=== PATIENT | male | born 1995 | race Caucasian/White ===

== ENCOUNTER 2017-06-09 11:10 | Inpatient (IN) ==
[2017-06-09] MEDS ORDERED: ALPRAZolam 0.5 MG TABLET PO ONE (11:42)
--- NOTE | 2017-06-09 11:43 | Emergency Department Note ---
Disposition Clinical Impression: Suicidal ideation, Anxiety, LFT elevation Depression Qualifiers: Depression Type: unspecified Qualified Code(s): F32.9 - Major depressive disorder, single episode, unspecified Disposition: Admitted As Inpatient Condition: Fair Referrals: NO,PCP [Primary Care Provider] - Forms: ED Satisfaction Letter Time of Disposition: 13:54 Psych HPI - General Chief Complaint: ED Psychiatric Symptoms Stated Complaint: SI/depression Time Seen by Provider: 06/09/17 11:36 Source: patient Mode of arrival: ambulatory Limitations: no limitations Nursing Notes Reviewed: Yes Vital Signs Reviewed: Yes - History of Present Illness HPI Narrative: Patient states he has felt depressed "all my life." He now has suicidal thoughts which include "blowing migraines out." He also feels anxious. He used to take antidepressants and hydroxyzine but is not currently taking any medications. He denies acute intoxication. His physical symptoms including chest tightness and face tightness Pt complaint: suicidal ideation, feels depressed, anxiety Onset (ago): week(s) Duration: intermittent History of similar episodes: Yes Improves with: none Worsens with: none Alleged intoxication: No Associated Psychiatric Symptoms: depression, suicidal ideation, anxiety Associated symptoms: Reports: other (Chest pain, "face tightness") Traumatic symptoms: denies traumatic injury Treatments prior to arrival: none Self harm or harm to others: admits thoughts of self harm, has plan - Related Data Allergies Allergy/AdvReac Type Severity Reaction Status Date / Time No Known Allergies Allergy Verified 06/09/17 11:34 All systems ED: reviewed and negative except as stated. Constitutional: Reports: as per HPI Eyes: Reports: as per HPI ENT ED: Reports: as per HPI Cardiovascular: Reports: chest pain Respiratory: Reports: as per HPI Gastrointestinal: Reports: as per HPI Genitourinary: Reports: as per HPI Musculoskeletal: Reports: as per HPI Integumentary: Reports: as per HPI Neurological: Reports: as per HPI Psychiatric: Reports: anxiety, depression, suicidal thoughts Endocrine: Reports: as per HPI Hematological/Lymphatic: Reports: as per HPI Allergic/Immunologic: Reports: as per HPI Past Medical History - Past Medical History Source: patient Medical history: Reports: no medical history Psychiatric history: Reports: anxiety, depression - Social History Smoking Status: Current every day smoker Smokeless Tobacco Status: No Alcohol use: Reports: occasionally Drug use: Reports: none Physical Exam - General Limitations: no limitations General appearance: alert, anxious - Head Head exam: atraumatic - Eye Eye exam: Present: normal appearance, PERRL - ENT ENT exam: normal exam - Neck Neck exam: Present: normal inspection, full ROM - Chest Chest inspection: Present: normal inspection, symmetric chest wall rise - Respiratory Respiratory exam: Present: normal lung sounds bilaterally - Cardiovascular Cardiovascular exam: Present: tachycardia, normal heart sounds - Rectal Exam Rectal exam: Present: deferred - Extremities Exam Extremities exam: Present: normal inspection - Neurological Exam Neurological exam: Present: alert, oriented X3, CN II-XII intact - Psychiatric Psychiatric exam: Present: anxious - Skin Skin exam: Present: warm, dry, intact Course Course Narrative: Patient presents feeling depressed, anxious, suicidal. I will attempt to clear him medically for behavioral evaluation - Reevaluation(s) Reevaluation #1: cleared medically for 1A eval Reevaluation #2: 1A accepts admission Vital Signs Temperature 98.1 F 06/09/17 11:30 Pulse Rate 120 06/09/17 11:30 Respiratory Rate 18 06/09/17 11:30 Blood Pressure 167/101 06/09/17 11:30 O2 Sat by Pulse Oximetry 97 06/09/17 11:30 Temperature 98.1 F 06/09/17 11:30 Pulse Rate 120 06/09/17 11:30 Respiratory Rate 18 06/09/17 11:30 Blood Pressure 167/101 06/09/17 11:30 O2 Sat by Pulse Oximetry 97 06/09/17 11:30 Oxygen Delivery Oxygen Delivery Room Air Psych - MDM Narrative Medical decision making narrative: LFTs mildly elevated but the patient reports alcohol use-last drink was 2 days ago - Lab Data Lab results reviewed: Yes I reviewed the patient's lab results. Result diagrams: 06/09/17 12:01 06/09/17 12:01 Lab Results 06/09/17 06/09/17 06/09/17 Range/Units 12:01 12:01 12:15 WBC 17.6 H (4.3-11.1) K/mcL RBC 5.49 (4.19-5.50) M/mcL Hgb 16.5 (12.9-16.9) g/dL Hct 47.9 (37.5-50.1) % MCV 87.2 (83.0-100.0) fL MCH 30.1 (28.0-33.3) pg MCHC 34.4 (31.6-35.5) g/dL RDW 12.5 (11.5-14.5) % Plt Count 223 (140-400) K/mcL MPV 10.1 (9.4-12.4) fL Immature Gran % 0.6 (0-4) % Seg Neutrophils % 75.7 % Lymphocytes % 16.1 % Monocytes % 6.7 % Eosinophils % 0.6 % Basophils % 0.3 % Neutrophils # 13.4 H (1.6-8.9) K/mcL Lymphocytes # 2.8 (0.6-4.6) K/mcL Monocytes # 1.2 (0.0-1.3) K/mcL Eosinophils # 0.1 (0.0-0.6) K/mcL Basophils # 0.1 (0.0-0.2) K/mcL Sodium 140 (136-145) mEq/L Potassium 3.7 (3.5-4.5) mEq/L Chloride 106 (98-109) mEq/L Carbon Dioxide 27 (19-29) mEq/L BUN 12 (8-26) mg/dL Creatinine 0.97 (0.72-1.25) mg/dL Est GFR ( Amer) > 60 (> 60) Est GFR (Non-Af Amer) > 60 (> 60) BUN/Creatinine Ratio 12 (6-26) Glucose 122 H (70-99) mg/dL Calculated Osmolality 291 (280-300) Calcium 9.6 (8.6-10.8) mg/dL Total Bilirubin 0.6 (0.2-1.2) mg/dL AST 45 H (5-34) Units/L ALT 105 H (0-55) Units/L Alkaline Phosphatase 61 (38-126) Units/L Serum Total Protein 7.5 (6.0-8.3) g/dL Albumin 4.0 (3.5-5.0) g/dL Globulin 3.5 (2.4-3.5) g/dL Albumin/Globulin Ratio 1.1 (1.1-2.2) Salicylates < 5.0 L (15-30) mg/dL Urine Opiates Screen Negative (Vzwxhz=918) ng/mL Acetaminophen < 1.0 L (10-30) mcg/mL Ur Barbiturates Screen Negative (Rlwubo=656) ng/mL Ur Phencyclidine Scrn Negative (Cutoff=25) ng/mL Ur Amphetamines Screen Negative (Kgwdqj=1450) ng/mL U Benzodiazepines Scrn Negative (Dfnbdk=910) ng/mL Urine Cocaine Screen Negative (Cutoff= 300) ng/mL U Marijuana (THC) Screen Negative (Cutoff = 50) ng/mL Ethyl Alcohol < 10 (0-10) mg/dL Psychiatric Medical Clearance - Medical Clearance Checklist Medical History: No Social History Section defined Current Vitals: Last Vital Signs Temp 98.1 F 06/09/17 11:30 Pulse 120 06/09/17 11:30 Resp 18 06/09/17 11:30 BP 167/101 06/09/17 11:30 Pulse Ox 97 06/09/17 11:30 Psychiatric Lab Panel: Drug Levels and Toxicity 06/09/17 06/09/17 12:01 12:15 Urine Opiates Screen Negative Acetaminophen < 1.0 L Ur Barbiturates Screen Negative Ur Phencyclidine Scrn Negative Ur Amphetamines Screen Negative U Benzodiazepines Scrn Negative Urine Cocaine Screen Negative U Marijuana (THC) Screen Negative Ethyl Alcohol < 10 Abnormal Labs: Abnormal lab results WBC 17.6 K/mcL (4.3-11.1) H 06/09/17 12:01 Neutrophils # 13.4 K/mcL (1.6-8.9) H 06/09/17 12:01 Glucose 122 mg/dL (70-99) H 06/09/17 12:01 AST 45 Units/L (5-34) H 06/09/17 12:01 ALT 105 Units/L (0-55) H 06/09/17 12:01 Salicylates < 5.0 mg/dL (15-30) L 06/09/17 12:01 Acetaminophen < 1.0 mcg/mL (10-30) L 06/09/17 12:01 Statement of Medical Clearance: I have evaluated the patient, reviewed diagnostic information, and certify that the patient's medical condition is sufficiently stable that transfer to the psychiatric unit does not pose a significant risk of deterioration.
[2017-06-09 12:12] LABS: Basophils # 0.1 K/mcL (0.0-0.2); Basophils % 0.3 %; Eosinophils # 0.1 K/mcL (0.0-0.6); Eosinophils % 0.6 %; Hematocrit 47.9 % (37.5-50.1); Hemoglobin 16.5 g/dL (12.9-16.9); Immature Granulocytes % 0.6 % (0-4); Lymphocytes # 2.8 K/mcL (0.6-4.6); Lymphocytes % 16.1 %; Mean Corpuscular HGB Conc 34.4 g/dL (31.6-35.5); Mean Corpuscular Hemoglobin 30.1 pg (28.0-33.3); Mean Corpuscular Volume 87.2 fL (83.0-100.0); Mean Platelet Volume 10.1 fL (9.4-12.4); Monocytes # 1.2 K/mcL (0.0-1.3); Monocytes % 6.7 %; Neutrophils # 13.4 K/mcL (1.6-8.9); Platelet Count 223 K/mcL (140-400); Red Blood Count 5.49 M/mcL (4.19-5.50); Red Cell Distribution Width 12.5 % (11.5-14.5); Segmented Neutrophils % 75.7 %
[2017-06-09 12:22] LABS: Alanine Aminotransferase 105 Units/L (0-55); Albumin/Globulin Ratio 1.1 (1.1-2.2); Alkaline Phosphatase 61 Units/L (38-126); Aspartate Amino Transferase 45 Units/L (5-34); BUN/Creatinine Ratio 12 (6-26); Bilirubin,Total 0.6 mg/dL (0.2-1.2); Blood Urea Nitrogen 12 mg/dL (8-26); Calcium 9.6 mg/dL (8.6-10.8); Carbon Dioxide 27 mEq/L (19-29); Chloride 106 mEq/L (98-109); Globulin 3.5 g/dL (2.4-3.5); Glucose 122 mg/dL (70-99); Osmolality,Calculated 291 (280-300); Potassium 3.7 mEq/L (3.5-4.5); Sodium 140 mEq/L (136-145); Total Protein 7.5 g/dL (6.0-8.3); eGFR For African Americans > 60 (> 60); eGFR For Non-African Americans > 60 (> 60)
[2017-06-09 12:23] LABS: Acetaminophen < 1.0 mcg/mL (10-30); Ethanol < 10 mg/dL (0-10); Salicylate < 5.0 mg/dL (15-30)
[2017-06-09 12:32] LABS: Amphetamine Screen,Urine Negative ng/mL (Cutoff=1000); Barbiturate Screen,Urine Negative ng/mL (Cutoff=200); Benzodiazepines Screen,Urine Negative ng/mL (Cutoff=200); Cannabinoid Screen,Urine Negative ng/mL (Cutoff = 50); Cocaine Screen,Urine Negative ng/mL (Cutoff= 300); Opiate Screen,Urine Negative ng/mL (Cutoff=300); Phencyclidine Screen,Urine Negative ng/mL (Cutoff=25)
[2017-06-09] MEDS ORDERED: Mag Hydrox/Al Hydrox/Simeth 30 ML UDC PO PRN (14:35)
[2017-06-09] MEDS ORDERED: MOM Conc 10 ML UD.LIQ PO PRN (14:35)
[2017-06-09] MEDS ORDERED: Ibuprofen 400 MG TABLET PO PRN (14:35)
[2017-06-09] MEDS ORDERED: Haloperidol Lactate 5 MG/ML VIAL IM PRN (14:35)
[2017-06-09] MEDS ORDERED: *HR* LORazepam 2 MG/ML VIAL IM PRN (14:35)
[2017-06-09] MEDS ORDERED: *HR* LORazepam 1 MG TABLET PO PRN (14:35)
[2017-06-09] MEDS ORDERED: traZODone 50 MG TABLET PO PRN (14:35)
[2017-06-09] MEDS: Nicotine 2 MG GUM BC PRN ×2 (18:31→20:28)
[2017-06-09] MEDS: hydrOXYzine pamoate 25 MG CAPSULE PO PRN (20:28)
[2017-06-10] MEDS: Nicotine 2 MG GUM BC PRN ×3 (09:02→19:08)
--- NOTE | 2017-06-10 12:04 | Psychiatry History & Physical ---
Date of Encounter: 06/10/17 Time of Encounter: 11:30 History of Present Illness Patient Stated Chief Complaint: "I have depression and thoughts to hurt my self " Medicare Admission Attestation: For traditional Medicare patients the provided hospital inpatient services are reasonable and necessary and in the case of services not specified as inpatient -only under 42 CFR 419.22 (n), that they are appropriately provided as inpatient services in accordance 42 CFR 412.3. For Critical Access Hospital the patient may reasonably be expected to be discharged or transferred to a hospital within 96 hours after admission to the Critical Access Hospital. Patient is a 21y/o male, single, father of 2, employed, lives with girlfriend, with a long h/o deression, anxiety disorder, no prior psych contact , no signficant medical hx, denied h/o illicit drug use, presented to the ER on account of recent exacerbation of depressive symptoms with suicidal ideations with plan and intent in the setting of medication noncompliance and ongoing stressors identified hsi inability to see his kids due to ongoing conflict with his ex girlfriend. Patient seen this morning in the office. He was calm, cooperative and well related. He reported a long h/o of depression starting in his teenage years. He reported multiple trial with medications including Sertraline and Lexapro which he stopped taking about 3months ago due to day time sedation. Patient reported increasing symptoms of his depressive symptoms since his separation from his ex and his ability to have access to his 2 sons. He reported recent increase in suicidal thoughts starting a weel ago. He also reported intent and plan of shooting himself. His dad took away his firearms after he informed him and encouraged him to seek help. Patient also reported intermittent hypomanic symptoms in the past usually lasting 3-4 day. Patient was offered Seroquel on admission with good effect for sleep. He also endorsed poor sleep the past couple of weeks prior to his admission. He reported feeling much better this morning after having a good night sleep. Continue to endorse depresive symptoms and denied SI at present time. On review of symptoms, he denied other rmood or psychotic symptoms including AH/VH/HI. Patient denied h/o suicide attempt. History of Present Illness: Mr. Holcomb is a 21 year old male Past Med Surg Social Fam HX - Past Medical History Medical history: no medical history - Past Psychiatric History Psychiatric history: Reports: anxiety, depression - Past Surgical History Surgical History: no surgical history - Social History Smoking Status: Current every day smoker Smokeless Tobacco Status: No Alcohol use: occasionally Drug use: none Medications & Allergies Escitalopram [Lexapro] 10 mg PO DAILY 06/09/17 [History] Allergies No Known Allergies Allergy (Verified 06/09/17 11:34) Review of Systems Constitutional: Denies: fever, chills, weakness, weight change Eyes: Denies: eye pain, vision change Ears, Nose, Throat: Denies: ear pain, throat pain, dental pain, hearing loss, congestion Cardiovascular: Denies: chest pain, palpitations, dyspnea on exertion Respiratory: Denies: cough, dyspnea, wheezes Gastrointestinal: Denies: abdominal pain, nausea, vomiting, diarrhea, constipation Genitourinary male: Denies: urgency, dysuria, frequency, genital lesions Genitourinary female: Denies: urgency, dysuria, frequency, abnormal menses, dyspareunia Musculoskeletal: Denies: joint swelling, joint pain Integumentary: Denies: rash, lesions, pruritus Neurological: Denies: headache, weakness, numbness, memory loss Endocrine: Denies: fatigue, heat or cold intolerance Hematologic/Lymphatic: Denies: easy bruising, lymphadenopathy Allergic/Immunologic: Denies: urticaria, itchy eyes Mental Status Exam Patient orientation: Yes Person, Yes Time, Yes Place Level of alertness: Alert Patient appearance: Appropriate, Well Groomed Behavior: calm, cooperative Psychomotor activity: Normal Eye contact: Maintains Eye Contact Mood description: Euthymic/stable, Depressed Affect description: congruent with mood, labile Speech pattern: Normal rate, Normal rhythm, Normal tone Speech volume: Normal Thought process: Linear, Goal Oriented Thought content: No Suicidal ideation, No Homicidal ideation, No Overt delusions Perceptual disturbances: No Auditory hallucinations, No Visual hallucinations Attention span: Capable of Focused Attention Memory description: Grossly Intact Patient reliability: Reliable Historian Intelligence estimate: Average Judgment: Limited Insight: Partial Results - Vital Signs Vital signs: Temp Pulse Resp BP Pulse Ox 97.2 F L 63 16 140/88 97 06/10/17 09:00 06/10/17 09:00 06/10/17 09:00 06/10/17 09:00 06/09/17 11:30 - Labs Labs: Laboratory Last Values WBC 17.6 K/mcL (4.3-11.1) H 06/09/17 12:01 RBC 5.49 M/mcL (4.19-5.50) 06/09/17 12:01 Hgb 16.5 g/dL (12.9-16.9) 06/09/17 12:01 Hct 47.9 % (37.5-50.1) 06/09/17 12:01 MCV 87.2 fL (83.0-100.0) 06/09/17 12:01 MCH 30.1 pg (28.0-33.3) 06/09/17 12:01 MCHC 34.4 g/dL (31.6-35.5) 06/09/17 12:01 RDW 12.5 % (11.5-14.5) 06/09/17 12:01 Plt Count 223 K/mcL (140-400) 06/09/17 12:01 MPV 10.1 fL (9.4-12.4) 06/09/17 12:01 Immature Gran % 0.6 % (0-4) 06/09/17 12:01 Seg Neutrophils % 75.7 % 06/09/17 12:01 Lymphocytes % 16.1 % 06/09/17 12:01 Monocytes % 6.7 % 06/09/17 12:01 Eosinophils % 0.6 % 06/09/17 12:01 Basophils % 0.3 % 06/09/17 12:01 Neutrophils # 13.4 K/mcL (1.6-8.9) H 06/09/17 12:01 Lymphocytes # 2.8 K/mcL (0.6-4.6) 06/09/17 12:01 Monocytes # 1.2 K/mcL (0.0-1.3) 06/09/17 12:01 Eosinophils # 0.1 K/mcL (0.0-0.6) 06/09/17 12:01 Basophils # 0.1 K/mcL (0.0-0.2) 06/09/17 12:01 Sodium 140 mEq/L (136-145) 06/09/17 12:01 Potassium 3.7 mEq/L (3.5-4.5) 06/09/17 12:01 Chloride 106 mEq/L (98-109) 06/09/17 12:01 Carbon Dioxide 27 mEq/L (19-29) 06/09/17 12:01 BUN 12 mg/dL (8-26) 06/09/17 12:01 Creatinine 0.97 mg/dL (0.72-1.25) 06/09/17 12:01 Est GFR ( Amer) > 60 (> 60) 06/09/17 12:01 Est GFR (Non-Af Amer) > 60 (> 60) 06/09/17 12:01 BUN/Creatinine Ratio 12 (6-26) 06/09/17 12:01 Glucose 122 mg/dL (70-99) H 06/09/17 12:01 Calculated Osmolality 291 (280-300) 06/09/17 12:01 Calcium 9.6 mg/dL (8.6-10.8) 06/09/17 12:01 Total Bilirubin 0.6 mg/dL (0.2-1.2) 06/09/17 12:01 AST 45 Units/L (5-34) H 06/09/17 12:01 ALT 105 Units/L (0-55) H 06/09/17 12:01 Alkaline Phosphatase 61 Units/L (38-126) 06/09/17 12:01 Serum Total Protein 7.5 g/dL (6.0-8.3) 06/09/17 12:01 Albumin 4.0 g/dL (3.5-5.0) 06/09/17 12:01 Globulin 3.5 g/dL (2.4-3.5) 06/09/17 12:01 Albumin/Globulin Ratio 1.1 (1.1-2.2) 06/09/17 12:01 Salicylates < 5.0 mg/dL (15-30) L 06/09/17 12:01 Urine Opiates Screen Negative ng/mL (Wscvwa=298) 06/09/17 12:15 Acetaminophen < 1.0 mcg/mL (10-30) L 06/09/17 12:01 Ur Barbiturates Screen Negative ng/mL (Scbqtr=357) 06/09/17 12:15 Ur Phencyclidine Scrn Negative ng/mL (Cutoff=25) 06/09/17 12:15 Ur Amphetamines Screen Negative ng/mL (Ngkrfm=8831) 06/09/17 12:15 U Benzodiazepines Scrn Negative ng/mL (Ftpknq=271) 06/09/17 12:15 Urine Cocaine Screen Negative ng/mL (Cutoff= 300) 06/09/17 12:15 U Marijuana (THC) Screen Negative ng/mL (Cutoff = 50) 06/09/17 12:15 Ethyl Alcohol < 10 mg/dL (0-10) 06/09/17 12:01 Assessment and Plan (1) MDD (major depressive disorder), recurrent episode, severe Current visit: Yes Status: Acute Qualifiers: Qualified Code(s): F33.2 - Major depressive disorder, recurrent severe without psychotic features (2) Bipolar 2 disorder, major depressive episode Current visit: Yes Status: Acute
[2017-06-10] MEDS: hydrOXYzine pamoate 25 MG CAPSULE PO PRN (20:52)
[2017-06-11] MEDS: Nicotine 2 MG GUM BC PRN ×4 (09:33→20:52)
--- NOTE | 2017-06-11 13:51 | Psychiatry Progress Note ---
Date of Encounter: 06/11/17 Time of Encounter: 13:30 Subjective Interval history: Patient seen this afternoon. He was calm , cooperative and well related. There were no reported incident overnight.He report significant improvement in his symptoms with his medications. Has been able to tolerate his medications and denied any noted side effect. He has been getting about 8hrs of sleep at night. Woke up this morning feeling happy and in good spirit. has not felt this way in a long time. Feels hopeful about the future. Scheduled to be in court next month for mediation hearing with about his kids. Denied feeling depressed, any intent to hurt self and feels more motivated. Denied other mood or psychotic symptoms including AH/VH/SI/HI Review of Systems Constitutional: Denies: fever, chills, weakness, weight change Eyes: Denies: eye pain, vision change Ears, Nose, Throat: Denies: ear pain, throat pain, dental pain, hearing loss, congestion Cardiovascular: Denies: chest pain, palpitations, dyspnea on exertion Respiratory: Denies: cough, dyspnea, wheezes Gastrointestinal: Denies: abdominal pain, nausea, vomiting, diarrhea, constipation Musculoskeletal: Denies: joint swelling, joint pain Neurological: Denies: headache, weakness, numbness, memory loss Psychiatric: Reports: depression Objective: Exam Patient orientation: Yes Person, Yes Time, Yes Place Level of alertness: Alert Patient appearance: Appropriate, Well Groomed Behavior: calm, cooperative Psychomotor activity: Normal Eye contact: Maintains Eye Contact Mood description: Euthymic/stable Affect description: congruent with mood, full range Speech pattern: Normal rate, Normal rhythm, Normal tone Speech volume: Normal Thought process: Linear, Goal Oriented Thought content: No Suicidal ideation, No Homicidal ideation, No Overt delusions Perceptual disturbances: No Auditory hallucinations, No Visual hallucinations Judgment: Fair Insight: Partial Results - Vital Signs Vital Signs: Temp Pulse Resp BP Pulse Ox 97.0 F L 75 16 149/89 97 06/11/17 09:00 06/11/17 09:00 06/11/17 09:00 06/11/17 09:00 06/09/17 11:30 Assessment and Plan (1) MDD (major depressive disorder), recurrent episode, severe Current visit: Yes Status: Acute Qualifiers: Qualified Code(s): F33.2 - Major depressive disorder, recurrent severe without psychotic features (2) Bipolar 2 disorder, major depressive episode Current visit: Yes Status: Acute Consult Discharge Plan - Plan Referrals: [facility] [Outside] - 06/16/17 3:00 pm (The above appointment is with Eden Holcomb for primary care and medication management services. After you see Eden, you will be given your follow-up appointment to see Fifi Nguyen, for mental health counseling. You will also be given a return appointment for Eden. Please arrive 15 minutes early to complete paperwork. Please bring your insurance card, photo ID and medications in their original bottles. If you do not have insurance, bring proof of income to apply for the sliding fee scale. If you are unable to keep this appointment, 24 hour business notice of cancellation is expected. This is the first available appointment. )
[2017-06-11] MEDS: hydrOXYzine pamoate 25 MG CAPSULE PO PRN (20:51)
[2017-06-12] MEDS: Nicotine 2 MG GUM BC PRN (08:39)
[2017-06-12 09:21] VITALS: BP 136/87
--- NOTE | 2017-06-12 09:24 | Discharge Summary ---
Date of Encounter: 06/12/17 Time of Encounter: 10:30 Diagnosis - Discharge Diagnosis (1) MDD (major depressive disorder), recurrent episode, severe Status: Resolved Qualifiers: Qualified Code(s): F33.2 - Major depressive disorder, recurrent severe without psychotic features (2) Bipolar 2 disorder, major depressive episode Status: Suspected Medications - Discharge Medications Prescriptions: Escitalopram [Lexapro] 10 mg PO DAILY #30 tab hydrOXYzine pamoate [HydrOXYzine Pamoate] 25 mg PO TID PRN #90 PRN Reason: Anxiety Quetiapine Fumarate [Seroquel] 25 mg PO HS #30 tab Escitalopram [Lexapro] 10 mg PO DAILY #30 tab 06/12/17 [Rx] Quetiapine Fumarate [Seroquel] 25 mg PO HS #30 tab 06/12/17 [Rx] hydrOXYzine pamoate [HydrOXYzine Pamoate] 25 mg PO TID PRN #90 06/12/17 [Rx] Allergies No Known Allergies Allergy (Verified 06/09/17 11:34) Provider Date of admission: 06/09/17 14:20 Primary care physician: PCP NO Discharging clinician: Krista Aguiar Assessment and Plan - Patient/Caregiver Discharge Instructions Activity: resume usual activities as tolerated Diet: regular diet - Follow up Plan Follow up with: [facility] [Outside] - 06/16/17 3:00 pm (The above appointment is with Eden Holcomb for primary care and medication management services. After you see Eden, you will be given your follow-up appointment to see Fifi Nguyen, for mental health counseling. You will also be given a return appointment for Eden. Please arrive 15 minutes early to complete paperwork. Please bring your insurance card, photo ID and medications in their original bottles. If you do not have insurance, bring proof of income to apply for the sliding fee scale. If you are unable to keep this appointment, 24 hour business notice of cancellation is expected. This is the first available appointment. ) Disposition: Home, Self-Care Hospital Course Hospital course: Mr. Holcomb is a 21 year old male single, father of 2, employed, lives with girlfriend, with a long h/o depression, anxiety disorder, no prior psych contact , no signficant medical hx, denied h/o illicit drug use, presented to the ER on account of recent exacerbation of depressive symptoms with suicidal ideation with plan and intent in the setting of medication noncompliance and ongoing stressors identified hsi inability to see his kids due to ongoing conflict with his ex girlfriend. Patient is a 21y/o male, single, father of 2, employed, lives with girlfriend, with a long h/o depression, anxiety disorder, no prior psych contact , no signficant medical hx, denied h/o illicit drug use, presented to the ER on account of recent exacerbation of depressive symptoms with suicidal ideation with plan and intent in the setting of medication noncompliance and ongoing stressors identified hsi inability to see his kids due to ongoing conflict with his ex girlfriend. . Patient was transferred to the inpatient unit for stabilization. Patient has been compliant with his medications and showed significant improvement in symptoms with improvement in his mood, increase in energy level and resolution of suicidal thoughts. He is sleeping and eating well and denied any side effects from his medications. Patient and discussed im a multiple disciplinary treatment team this morning. He reported doing well and at his baseline with no specific complaints. On review of symptoms, he denied any mood or psychotic symptoms including AH/VH/Si/HI. Patient is logical and goal directed with good insight, impulse control and judgment. He is psychiatrically stable at present time and not deem a rsik to self or others and can be safely discharge home with out patient mental health follow up. Suicide safety plans discussed with patient and verbalized adequate understanding. - Time Spent with Patient Total time spent providing and/or coordinating discharge services: Quality - Multiple Antipsychotics Patient discharged on 2 or more antipsychotic medications: No Procedures - Procedures Procedures: Medication Management, Crisis Stabilization, Supportive Therapy, Group Therapy, Psychoeducational Therapy Mental Status Exam - Mental Status Exam Patient orientation: Yes Person, Yes Time, Yes Place Level of alertness: Alert Patient appearance: Appropriate, Well Groomed Behavior: calm, cooperative Psychomotor activity: Normal Eye contact: Maintains Eye Contact Mood description: Euthymic/stable Affect description: congruent with mood, full range Speech pattern: Normal rate, Normal rhythm, Normal tone Speech Volume: Normal Thought process: Linear, Goal Oriented Thought Content: No Suicidal ideation, No Homicidal ideation, No Overt delusions Perceptual Disturbances: No Auditory hallucinations, No Visual hallucinations Judgment: Fair Insight: Full
== END 2017-06-12 12:10 | disposition home or self-care (01) | DRG 885 ==
LOC: EMEROO 11:10 → 1ANU 14:15
PROVIDERS: ADMIT Psychiatry & Neurology Psychiatry; ATTEND Psychiatry & Neurology Psychiatry